=== PATIENT | male | born 1980 | race Caucasian/White ===

== ENCOUNTER 2019-09-04 20:09 | Emergency (ER) | payer SELFPAY ==
[2019-09-04 20:11] VITALS: BP 140/97; PULSE 84; RESP 34; TEMP 36.8; O2SAT 100; BMI 29.0
--- NOTE | 2019-09-04 20:36 | EKG12_ITS ---
Test Reason : CP Blood Pressure : / mmHG Vent. Rate : 080 BPM Atrial Rate : 080 BPM P-R Int : 138 ms QRS Dur : 086 ms QT Int : 374 ms P-R-T Axes : 048 079 047 degrees QTc Int : 431 ms Normal sinus rhythm Normal ECG Confirmed by ORLANDO LISA, MAXIMO ([id number]), news assignment editor JAMILAH DUGAN ([id number]) on 09/05/2019 10:39:44 AM Referred By: BB Confirmed By:NICKY PERRY MD
--- NOTE | 2019-09-04 20:40 | ED.VIS.CHEST ---
History of Present Illness Chief Complaint: Chest Pain Informant: Patient Onset: Hours - 1 Activity at onset: Rest - Relatively sudden onset Timing: Continuous Quality: Pain Location: Substernal - Across chest, worse on the left Current Severity: Moderate Maximum Severity: Moderate Worsened By: Breathing Relieved By: Nothing Associated Symptoms: Dyspnea, Cough - Chronic, occasionally productive, unchanged, - - Numb all over. 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 He states he was not working on anything except for some paperwork when the symptoms started less than an hour ago. He states he was feeling numb all over prior to that, then the chest pain started and it was relatively severe, making him feel short of breath as well, symptoms have persisted. He is very anxious, tachypnea, saying that he really feels numb distally in all 4 extremities. Prior Similar Symptoms: No Recent Illness/Hospitalization: No PE Risk Factors: Negative for: Recent Travel/Surgery, Recenet Immobilization, Prior DVT or PE, Cancer, OCP + Smoking + >/=35 Past Medical History - Allergies and Home Meds Allergies/Adverse Reactions: Allergies amoxicillin Allergy (Verified 09/04/19 20:10) Rash Primary Care Physician: NOT,DEFINED [NON-STAFF] - Surgical History: appendectomy, - - Nasal reconstructive surgery due to fracture/deviated septum Smoking Status: Current every day smoker Drugs: None Review of Systems General: Denies: Chills, Fever, Sweats Eyes: Denies: Visual changes - bilaterally, Diplopia ENT: Reports: - - Double breathing through his nose chronically. Denies: Rhinorrhea, Sore throat Cardiovascular: Reports: Chest pain. Denies: Palpitations Respiratory: Reports: Dyspnea, Cough, Sputum. Denies: Dyspnea on exertion Gastrointestinal: Denies: Abdominal pain, Nausea, Vomiting, Diarrhea, Melena, Hematochezia Genitourinary: Denies: Dysuria, Hematuria, Frequency Musculoskeletal: Denies: Neck pain, Back pain, Swelling, Extremity Pain Skin: Denies: Rash, Wounds Neurological: Denies: Headache, Weakness, Numbness Psych: Reports: Anxiety. Denies: Suicidal thoughts Physical Exam Vital Signs/Narrative: Vital Signs Temp Pulse Resp BP Pulse Ox 09/04/19 20:11 98.2 F 84 34 H 140/97 H 100 Inital Vital Signs reviewed: Yes General: Well nourished, Well developed, Acute Distress - Very anxious and tachypneic Head: Normocephalic, Atraumatic Eyes: Perrl, EOMI ENT: Moist mucous membranes, No rhinorrhea Neck: Supple, Nontender, No JVD, - - Trachea midline Cardiovascular: Regular rate, Regular rhythm, No murmurs. Negative for: Tachycardia Respiratory: No distress, CTA bilaterally, Chest tenderness - Diffusely tender, patient thinks it is reproducing his pain. Pain is also worsened with the patient's arms outstretched in front of him, adducting them together against resistance. Abdomen: Soft, Nondistended, Normal bowel sounds, Tender - Epigastrium only. Negative for: Guarding, Rebound tenderness Back: Nontender, Normal Inspection Extremities: Nontender, No edema Skin: Normal color, No rash Neurological: Alert, Oriented x3, Cranial nerves II-XII grossly intact, Normal Strength, Parasthesia - Distal all 4 extremities Psychological: - - Very anxious Diagnostic/Tx/Re-eval Impressions Chest X-Ray 09/04/19 20:45 IMPRESSION: Normal x-ray examination of the chest. Electronically Signed: Gladys Joiner MD at 21:01 EST , Service support , Chest CTA 09/04/19 21:16 IMPRESSION: Negative for pulmonary embolus. Normal thoracic aorta. Normal heart size without pericardial effusion or substantial coronary calcifications. Mild dependent atelectatic changes. Mild patchy groundglass changes/alternating areas of lucency which may be air trapping primarily of the lower lobes. Otherwise negative for major consolidation or pleural effusion. Electronically Signed: Gladys Joiner MD at 22:14 EST , Service support , 09/04/19 20:45 Chest 1 View (Portable) [RAD] Stat 09/04/19 21:16 CTA Chest W/WO Contrast [CT] Stat Laboratory Results 09/04/19 09/04/19 09/04/19 20:27 20:27 20:27 WBC 11.9 H RBC 5.19 Hgb 16.1 Hct 47.6 MCV 91.7 MCH 31.0 MCHC 33.8 RDW Std Deviation 41.3 RDW Coeff of Leandro 12.3 Plt Count 327 MPV 9.1 Immature Gran % (Auto) 0.300 Neut % (Auto) 55.7 Lymph % (Auto) 36.4 [place] % (Auto) 5.9 Eos % (Auto) 1.4 Baso % (Auto) 0.3 Absolute Neuts (auto) 6.6 Absolute Lymphs (auto) 4.33 Nucleated RBC % 0 D-Dimer Quant (PE/DVT) 0.52 H* Sodium 140 Potassium 3.9 Chloride 109 H Carbon Dioxide 21.0 Anion Gap 10 BUN 12 Creatinine 1.21 Estim Creat Clear Calc 84.63 Est GFR (MDRD) Af Amer 85 Est GFR (MDRD) Non-Af 71 BUN/Creatinine Ratio 9.9 L Glucose 111 H Calcium 9.6 Troponin I < 0.015 - Rhythm Strip Rhythm Strip: Sinus Rhythm Rate: 80 Ectopy: None - EKG Initial EKG Interpretation: Sinus Rhythm, No Acute Injury Pattern - normal ekg Treatment: Toradol IV Repeat Eval: Significant improvement - Medical Decision Making Patient was treated with Toradol and was given a mask to wear without oxygen, he appeared very anxious and tachypneic. His symptoms gradually improved to almost resolution. His d-dimer was a little elevated so I perform CT angiography of the chest which showed no presence of a PE. His vital signs are now normal. He feels much better. The numbness is finally gone. Unknown why it started first before he had any of the other symptoms. Otherwise, I would say this was all anxiety, but that might of been a side effect. There is no evidence of a dysrhythmia. He is stable for discharge home and follow-up. CT did show some abnormal pulmonary area, his exam is normal with regards to auscultation, I advised patient to stop smoking. ED Disposition - Plan for ED Patient: Disposition: Home or Assisted Living Diagnosis: Chest pain, unspecified, Anxiety Instructions: CHEST PAIN, NonCardiac, CHEST WALL PAIN, Costochondritis Referrals: Doctor,Your [STAFF PHYSICIAN] - 1 Week if not improving Additional Instructions: Try to curb or discontinue your smoking.
[2019-09-04] MEDS: Mag Hydrox/Al Hydrox/Simeth 30 ML UDC PO (20:42)
[2019-09-04] MEDS: Ketorolac 30 MG/ML Syringe IV (20:42)
--- NOTE | 2019-09-04 20:45 | RAD_ITS ---
STUDY: X-RAY CHEST REASON FOR EXAM: Male, 38 years old. chest pain, shortness of breath TECHNIQUE: Single AP portable view of the chest. COMPARISON: None. FINDINGS: The lungs are clear and expanded. There is no demonstrated pleural abnormality. Normal size heart. Normal mediastinum and erlinda. Normal visualized pulmonary arteries. Normal visualized aortic arch and descending thoracic aorta. Normal visualized thoracic spine. Normal visualized ribs, clavicles, and shoulders. There is no demonstrated abnormality of the visualized soft tissue structures of the upper abdomen. RAD/Chest 1 View (Portable) IMPRESSION: Normal x-ray examination of the chest. Electronically Signed: Gladys Joiner MD at 21:01 EST , Service support ,
[2019-09-04 20:48] LABS: Absolute Lymphocyte Count 4.33 X10^3/uL (0.83-4.51); Absolute Neutrophil Count 6.6 X10^3/uL (2.0-7.7); Basophil# 0.04 X10^3/uL; Basophil% 0.3 % (0-1); Eosinophil# 0.17 X10^3/uL; Eosinophils% 1.4 % (0-5); Hematocrit 47.6 % (40-54); Hemoglobin 16.1 g/dL (13.0-16.5); Lymphocyte # 4.33 X10^3/ul (4.0); Lymphocyte % 36.4 % (19-41); Mean Corp Hgb Conc 33.8 g/dL (32-36); Mean Corpuscular Volume 91.7 fL (80-94); Mean Platelet Vol. 9.1 fl (6.2-12.0); Monocyte% 5.9 % (0-10); NRBC Flagged by Analyzer 0 % (0-5); Neutrophil # 6.64 X10^3/uL (2.7-7.7); Neutrophil % 55.7 % (47-70); Platelet Count 327 K/mm3 (150-450); RBC Distribution Width CV 12.3 % (11.6-14.6); RBC Distribution Width SD 41.3 fl (35.1-43.9); Red Blood Count 5.19 M/mm3 (4.6-6.2); White Blood Count 11.9 K/mm3 (4.4-11.0)
[2019-09-04 21:01] LABS: Anion Gap 10 (5-15); BUN 12 mg/dL (7-18); BUN/Creat Ratio 9.9 RATIO (10-20); Calcium,Total 9.6 mg/dL (8.5-10.1); Chloride 109 mmol/L (98-107); Creatinine, Serum 1.21 mg/dL (0.70-1.30); EST Glomerular Filtration Rate 71 mL/min (>60); Est Glom Filt Rate - Afr Amer 85 mL/min (>60); Estimated Creatinine Clearance 84.63 ml/min; Glucose 111 mg/dL (74-106); Potassium 3.9 mmol/L (3.5-5.1); Sodium Level 140 mmol/L (136-145)
[2019-09-04 21:08] VITALS: BP 142/84; PULSE 74; RESP 25; O2SAT 100
[2019-09-04 21:10] LABS: D-Dimer Quantitative (DVT/PE) 0.52 FEU/ug/m (0.27-0.49)
--- NOTE | 2019-09-04 21:16 | CT_ITS ---
STUDY: CTA CHEST REASON FOR EXAM: Male, 38 years old. CHEST PAIN AND SOB,ELEVATED DDIMER RADIATION DOSAGE (If Supplied By Facility): CTDIvol = ( 12.54 ) mGy, DLP = ( 430.73 ) mGycm TECHNIQUE: The examination was performed with the intravenous administration of IV 100mL [id number]. Post-processing of the angiographic images was performed, with multiplanar reformation and 3D reconstruction. Individualized dose optimization techniques were used for this CT. COMPARISON: Portable chest exam of September 04, 2019 FINDINGS: Normal enhancement of the main pulmonary artery and right and left pulmonary arteries. Normal enhancement of the bilateral peripheral pulmonary arteries. There is no demonstrated pulmonary embolism. Normal thoracic aorta and visualized great vessels. There is no demonstrated aortic dissection. Normal heart and pericardium. Normal mediastinum. Normal hilar regions. Normal visualized trachea and bronchi. Mild dependent atelectatic changes and patchy mild groundglass changes and or small areas of air trapping primarily lower lobes. Negative for major consolidation. Negative for pleural effusion. Normal chest wall structures. Mild degenerative changes of the lower thoracic spine. Normal visualized upper abdomen. CT/CTA Chest W/WO Contrast IMPRESSION: Negative for pulmonary embolus. Normal thoracic aorta. Normal heart size without pericardial effusion or substantial coronary calcifications. Mild dependent atelectatic changes. Mild patchy groundglass changes/alternating areas of lucency which may be air trapping primarily of the lower lobes. Otherwise negative for major consolidation or pleural effusion. Electronically Signed: Gladys Joiner MD at 22:14 EST , Service support ,
[2019-09-04 22:07] VITALS: BP 138/82; PULSE 73; RESP 20; O2SAT 98
[2019-09-04 23:06] VITALS: BP 138/84; PULSE 71; RESP 20; O2SAT 98
== END 2019-09-04 23:08 | disposition home or self-care (01) ==
PROVIDERS: Emergency Provider Emergency Medicine; Family Provider Internal Medicine Critical Care Medicine; PCP Internal Medicine Critical Care Medicine
DX: R07.89 Other chest pain (principal); F41.9 Anxiety disorder, unspecified; F17.200 Nicotine dependence, unspecified, uncomplicated
CPT/HCPCS: 71045; 71275; 80048; 84484; 85025; 85379; 93005; 96361; 96374; 99285; J7030; Q9967; A4216